=== PATIENT | male | born 1985 | race African-American/Black ===

== ENCOUNTER 2021-10-21 03:39 | Emergency (ER) | payer SELFPAY ==
[~2021-10-21] VITALS: Ht 188 cm; Wt 77.0 kg
[2021-10-21 03:41] VITALS: BP 142/68
[2021-10-21] MEDS ORDERED: ACETAMINOPHEN 325MG TABLET PO STA (04:45)
[2021-10-21] MEDS ORDERED: DIPHENHYDRAMINE 50MG/ML VIAL IM ONE (04:45)
[2021-10-21] MEDS ORDERED: PERMETHRIN 5% CREAM 60GM TOP ONE (04:45)
[2021-10-21] MEDS ORDERED: DIPH25CA83 PO (05:18)
[2021-10-21] MEDS ORDERED: HYDR-4233 TP (05:18)
[2021-10-21] MEDS ORDERED: PERM60CR4 TP (05:18)
== END 2021-10-21 06:50 | disposition home or self-care (01) ==
LOC: ER 03:39 → EDBD 03:39 → ER 06:50
DX: B85.1 Pediculosis due to Pediculus humanus corporis (principal); B86 Scabies; L25.9 Unspecified contact dermatitis, unspecified cause; Z59.00 Homelessness unspecified
CPT/HCPCS: 96372; 99283; J1200